=== PATIENT | male | born 1970 | race Caucasian/White ===

== ENCOUNTER 2017-03-30 06:25 | Day surgery (SDC) | payer BC, MEDICAID ==
[~2017-03-30] VITALS: Ht 170.2 cm; Wt 74.1 kg
[~2017-03-30 06:25] MED LIST: SODIUM CHLORIDE 0.9% 1,000 ML IV ONE
[2017-03-30] MEDS ORDERED: IBUP-2071 PO (06:42)
[2017-03-30] MEDS ORDERED: TRAM50TA4 PO (06:42)
[2017-03-30] MEDS ORDERED: LISI-662 PO (06:42)
[2017-03-30] MEDS ORDERED: DIAZ10 PO (06:58)
[2017-03-30] MEDS ORDERED: MONT10TA21 PO (06:58)
[2017-03-30] MEDS ORDERED: OMEP20 PO (06:58)
[2017-03-30] MEDS ORDERED: SIMV-260 PO (06:58)
[2017-03-30] MEDS ORDERED: BUPR1TAB33 SL (06:58)
[2017-03-30] MEDS ORDERED: SODIUM CHLORIDE 0.9% 1,000 ML IV ONE (07:00)
[2017-03-30] MEDS ORDERED: MIDAZOLAM HCL 2 MG/2 ML VIAL ONE (08:01)
[2017-03-30] MEDS ORDERED: FentaNYL CITRATE-PF 100 MCG/2 ML VIAL ONE (08:02)
[2017-03-30] MEDS ORDERED: MethylPREDNISolone SOD SUCC 125 MG/2 ML VIAL IVP ONE (09:15)
[2017-03-30] MEDS ORDERED: MethylPREDNISolone SOD SUCC 125 MG/2 ML VIAL ONE (09:54)
[2017-03-30] MEDS ORDERED: OXYGEN THERAPY IH SCH (20:00)
== END 2017-03-30 10:50 | disposition home or self-care (01) ==
LOC: SURGERY 06:25
PROVIDERS: ATTEND Internal Medicine Critical Care Medicine
DX: B37.0 Candidal stomatitis (principal); I10 Essential (primary) hypertension; F41.9 Anxiety disorder, unspecified; Z79.899 Other long term (current) drug therapy
CPT/HCPCS: 31623; 31624; 71010; 87015 ×2; 87070; 87101; 87147; 87205; 87220; 88108; 88312; J2250; J2930; J3010; J7030